=== PATIENT | female | born 1950 | race Caucasian/White ===

== ENCOUNTER 2019-04-09 06:23 | Inpatient (IN) | payer OTHER ==
[~2019-04-09] VITALS: Ht 170.2 cm; Wt 99.8 kg
[~2019-04-09 06:23] MED LIST: ALDACTONE50 MG OR; AMOX TR-K CLV1 EAC4 PO; B COMPLEX-VITA1 EACH OR; COUMADIN 1MG TAB1 M1 PO; COUMADIN 2 MG TA2 M1 OR; COUMADIN 5 MG TA5 M1 OR; EFFEXOR XR150 MG PO; ENOXAPARIN100 MG/11 SUBQ; IBUPROFEN 200200 M1 OR; LIPITOR40 MG PO; NEURONTIN600 MG PO; NORCO 5-325 TA1 EACH PO; OMEGA-31000 M1 PO; PERCOCET 10-321 EACH OR; SUPER B-50 COM1 EACH PO; TRAMADOL 50 MG50 MG PO; VIBRAMYCIN100 MG OR; VISTARIL 25 MG25 M1 OR
[2019-04-09 07:31] LABS: PROTIME 9.9 Seconds (9.3-11.4)
[2019-04-09 08:33] VITALS: BP 129/81
--- NOTE | 2019-04-09 13:07 | O ---
[facility] [place] [address] OPERATIVE REPORT Name: MONI PATEL Room #: 150-8 ADM IN M.R.#: [id number] Admission: 04/09/19 Attend Phys: Romeo Machuca MD Discharge: Date of : 48 Report #: [id number] THIS REPORT FOR: //name// CC: Romeo Lugo DATE OF SERVICE: 04/09/2019 PREOPERATIVE DIAGNOSES: 1. 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 2. Degenerative osteoarthritis, left knee. 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 PROCEDURE: 1. Right L4-L5 laminotomy and foraminotomy with excision of degenerative epidural facet cyst. 2. Cortisone injection, left knee. SURGEON: Romeo Machuca MD INDICATIONS: This active 68-year-old female complains of severe progressive radiating right leg pain. Clinical exam and MRI studies have confirmed a severely degenerative facet joint at L4-L5 toward the right side with an associated facet cyst, which has encroached into the canal and the right L5 neural foramina causing significant canal and nerve root compromise. She has tried conservative measures including anti-inflammatories, pain medication and a trial of percutaneous-guided cyst rupture. This has not resulted in improvement and we have elected to go ahead with surgical exploration. In addition to these chronic back and right leg symptoms, she also complains of left knee pain related to degenerative arthritis. She has had some benefit with injection in the past and has requested a left knee injection during this same procedure. DESCRIPTION OF PROCEDURE: The patient was taken to the operating room where she was placed under general anesthesia. Prophylactic intravenous antibiotics were administered. The left knee was injected with 40 mg of Depo-Medrol at the beginning of the case as the patient requested, this was accomplished without difficulty. The patient was then turned to the prone position. The low back was meticulously prepped and draped and C-arm was used to visualize the appropriate level. A skin incision was then made over the L4-L5 level extending slightly distally. This was carried through rather abundant subcutaneous adipose tissue and the fascia was opened retracting the paraspinal muscles toward the right [address] [address] OPERATIVE REPORT Name: MONI PATEL Room #: 150-8 [facility] IN .R.#: [id number] Admission: 04/09/19 Attend Phys: Romeo Machuca MD Discharge: Date of : 48 Report #: [id number] side. I was able to visualize the lamina of L4 and L5. There was an obvious soft tissue mass consistent with a synovial cyst, which had erupted up along the facet joint and between the lamina of L4 and L5. There was a moderate amount of scarring around this area, which was freed up to better define the cystic mass. This was traced down to the point where it dove beneath the lamina between L4 and L5 level. The cyst was firmly grasped and withdrawn, gradually freeing it up. I could tell there was a good deal of cystic debris within the canal, which was able to be drawn up along with the superficial portion. Once I could no longer retrieve any further material, the soft tissue mass was amputated at its base and sent off to pathology for evaluation. Once this had been accomplished, there was better visualization of the lamina of L4 and L5, a moderate laminotomy in the inferior aspect of L4 was created. A more aggressive laminotomy in the superior aspect of L5 was created as the cyst seemed to be more distal based up on preoperative MRI study. This allowed good exposure of the canal. There was moderate scarring involving the dura and the ligamentum which was gently debrided; however, the canal seemed to be nicely opened and I could trace the L5 nerve root down around the pedicle and out the neural foramina. The nerve root seemed to be freed up nicely and although there was some chronic erythema, there was no significant compression or deformity. At this point, the dissection was carried across the midline and no other abnormalities in this region were identified. The more proximal aspect was carefully palpated. I could visually see and feel the L4-L5 disk, which was only mildly prominent, but firm and without evidence of disk herniation. I obtained new C-arm views, which demonstrated a probe at the posterior body of L5, where the cyst was most notable on preoperative MRI study confirming that I was at the appropriate level. I also placed a probe at the L4-L5 disk space confirming that I was at the appropriate level there and demonstrated satisfactory exposure. I did not feel the need to extend the dissection for above the L4-L5 disk as there were no problems that are noted on MRI study. The canal seemed to be adequately decompressed without any further problems. I did not feel that further dissection of the bony architecture nor diskectomy was therefore necessary. The wound was copiously irrigated. Good hemostasis was established, 40 mg of Depo-Medrol were left in the epidural space around the L5 nerve root to help with postoperative pain control. A small piece of Gelfoam was left covering this to hold the Depo-Medrol in position. The muscle and fascia was then closed with multiple #1 Vicryl sutures. The subcutaneous tissues were closed with 0 Monocryl. The skin was closed with skin alex. A sterile dressing was applied. The patient was awakened and returned to recovery room in good condition. Preoperatively, she noted that she was hoping to go home from the recovery room today. We will see how she does with regard to pain management or any other problems and either discharge from the recovery room or [address] [address] OPERATIVE REPORT Name: MONI PATEL Room #: 150-8 ADM IN M.R.#: [id number] Admission: 04/09/19 Attend Phys: Romeo Machuca MD Discharge: Date of : 48 Report #: [id number] keep her in observation bed through the day and then discharge later tonight or tomorrow morning. <ELECTRONICALLY SIGNED> By: Romeo Machuca MD 04/09/19 1307 1139 [id number] Romeo Machuca MD /nt
[2019-04-09 16:25] VITALS: BP 132/74
[2019-04-09 19:10] VITALS: BP 121/70
--- NOTE | 2019-04-10 03:24 | NUR ---
ASSUMED PT CARE 1899. PT ALERT AND ORIENTED, REASSESSMENT COMPLETE. VSS. IV DRESSING C/D/I. DENIES N/V. REPORTS PAIN, SEE EMAR. UP TO BATHROOM SBA. WORKING TOWARD POC. DRESSING C/D/I. CALL LIGHT AND PERSONAL BELONIGNS WITHIN REACH. WILL CONTINUE POC UNTIL EOS.
[2019-04-10 04:15] VITALS: BP 135/67
[2019-04-10 07:56] VITALS: BP 121/70
[2019-04-10 10:37] VITALS: BP 121/70
[2019-04-10 11:23] VITALS: BP 121/70
[2019-04-10 12:06] VITALS: BP 121/70
--- NOTE | 2019-04-10 12:48 | NUR ---
SPOKE WITH DR GARCIA WHO STATED WAS IN SUR[facility]ERY [facility]ENTER UNABLE TO COME TO [facility], BUT GAVE VERBAL ORDER TO DISCHARGE PATIENT TODAY TO HOME [facility]. CHANGE DRESSING TO INCISION SITE NEEDED WITH LIGHT DRSESSING FOLLOW UP IN [address] GARCIA FOR STAPLE REMOVAL. UNABLE TO PRINT ALL OF DISCHARGE PAPERWORK.
--- NOTE | 2019-04-10 13:11 | NUR ---
PATIENT LEFT VIA W/C WITH DAUGHTER. ALL BELONGINGS PACKED AND SENT WITH PATIENT. IV ACSESS DCD. NO PAIN OR RESP DISTRESS AT DISCHARGE.
--- NOTE | 2019-04-10 16:06 | PATH ---
[facility] [address] [place] [address] [place] [address] PATHOLOGY RPT PROCEDURE Name: GARO PATEL Room #: 424-P DIS IN M.R.#: [id number] Admission: 04/09/19 Date of : 48 Discharge: 04/10/19 Report #: [id number] Path Case #: [id number] [facility] Accession Number: [id number] . 01 Material submitted: . back - EPIDURAL, L4-5 . 01 Clinical history: . Bursal cyst, low back pain, radiculopathy. . 02 Diagnosis: Soft tissue, "epidural cyst L4-L5", removal: - Synovial cyst with mild chronic inflammation and calcifications. . (SKM:mml; 04/10/2019) QLM/04/10/2019 . 02 Electronically signed: . Billy Faria MD, Pathologist NPI- [id number] . 01 Gross description: . Received in formalin labeled "Brittny, Garo, epidural cyst" (per problem specimen form, L4-L5) and labeled on the requisition and problem specimen form as "epidurmal cyst" is a portion of pink-gutierrez irregular tissue measuring 3.3 x 0.9 x 0.5 cm. The specimen is sectioned to reveal a fibrotic cut surface. No cystic structures are grossly identified. The specimen is submitted entirely in cassette A1. ([facility]; 04/09/2019) SY/SY . 02 Pathologist provided ICD-10: M71.30, M65.9 . 02 CPT . 956292 Specimen Comment: A courtesy copy of this report has been sent to Specimen Comment: [phone], . Specimen Comment: Report sent to / DR FAY Performed at: [address], [place], [place] [id number] MD Albert Joshi MD Phone: [phone] Performed at: [address] [id number] MD Marialuisa Lopez MD Phone: [phone]
== END 2019-04-10 12:54 | disposition home or self-care (01) | DRG 520 ==
LOC: OR 06:23 → TBA 06:51 → 4E 06:51 → OR 11:39 → EDSTATUS 14:12 → PRE 14:56 → 4E 15:52 → ENTRNSPT 04-10 12:26 → EDTRNSPTSTS 04-10 12:29 → 4E 04-10 12:54
PROVIDERS: ADMIT Orthopaedic Surgery
PROC: 01NB0ZZ Release Lumbar Nerve, Open Approach (ICD-10-PCS; principal; 2019-04-09)
PROC: 0SB20ZZ Excision of Lumbar Vertebral Disc, Open Approach (ICD-10-PCS; principal; 2019-04-09)
PROC: 3E0233Z Introduction of Anti-inflammatory into Muscle, Percutaneous Approach (ICD-10-PCS; 2019-04-09)
DX: M47.26 Other spondylosis with radiculopathy, lumbar region (principal); M48.061 Spinal stenosis, lumbar region without neurogenic claudication
CPT/HCPCS: 10783; 50010; 50101; 50402; 50704; 50850; 51412; 56525; 62110; 62900; 70005